=== PATIENT | male | born 1965 | race Caucasian/White ===

== ENCOUNTER 2021-04-01 20:37 | Inpatient (IN) | payer OTHER ==
[~2021-04-01] VITALS: Ht 190.5 cm; Wt 94.3 kg
[2021-04-01] MEDS ORDERED: ROCURONIUM BROMIDE 50 MG/5 ML VIAL As Ordered ONE (21:39)
[2021-04-01] MEDS ORDERED: LIDOCAINE 2% 100MG/5ML SDV (FOR ANES.) As Ordered ONE (21:39)
[2021-04-01] MEDS ORDERED: SUCCINYLCHOLINE INJ 200 MG/10 ML VIAL (J0330) As Ordered ONE (21:39)
[2021-04-01] MEDS ORDERED: propofoL 200 MG/20 ML VIAL As Ordered ONE (21:39)
[2021-04-01] MEDS ORDERED: MIDAZOLAM INJ 2MG/2ML VIAL (J2250 PER 1MG) As Ordered ONE (21:40)
[2021-04-01] MEDS ORDERED: fentaNYL 100 MCG/2 ML INJECTION (J3010) As Ordered ONE ×2 (21:40→22:19)
[2021-04-01] MEDS ORDERED: ONDANSETRON 4MG/2ML VIAL As Ordered ONE (21:40)
[2021-04-01] MEDS ORDERED: GENTAMICIN SULF 80MG/2ML VIAL As Ordered ONE (21:49)
--- NOTE | 2021-04-01 21:49 | ED PDOC ---
Post-Departure Follow-Up Emergency Department Attending Note Patient was transferred from outside facility to see Urology. Dr. Archibald has seen the patient in the ED and has written admission orders at this time. He was not seen or evaluated by an ED provider. BEBETO OSORIO MD April 01, 2021 21:49
--- NOTE | 2021-04-01 21:58 | SMCUROLCON ---
Urology Consultation General Date of Consultation 04/01/21 Reason For Consultation This patient is seen for Scrotal Abscess. History of Present Illness The patient is a 55-year-old male with a past medical history for urinary retention, diabetes scrotal inflammation and edema. He presented to the [facility] today because of drainage from the scrotum. He states that the scrotum has been swelling for about a week now and getting progressively worse with some discomfort. When it began draining, he presented to the hospital where he was diagnosed with a scrotal abscess and transferred to [facility]. He was seen in the urology clinic last week for urinary retention and had been scheduled for cystoscopy to evaluate the retention. At that time he was noted to have some edema of the scrotum and placed on ciprofloxacin, but the infection worsened resulting in an abscess. Past Medical History Medical History Coronary artery disease Hyperlipidemia Myocardial infarction Type 2 diabetes Surgical Hstory Laminectomy 1999 Femoropopliteal artery bypass 2004 Social History * Smoker: current smoker Alcohol: Denies Drugs: denies Allergies Allergies: Coded Allergies: No Known Allergies (Unverified , 04/01/21) Review of Systems General: Reports: Normal Appetite; Denies: Fatigue, Malaise Constitutional: Denies: Fever, Chills, Sweats, Weakness, Malaise Eyes: Denies: Pain, Vision change ENT: Denies: Head Aches, Sore Throat, Epistaxis Skin: Denies: Rash, Lesions, Breakdown, Nail Changes Pulmonary: Denies: Dyspnea, Cough Cardiovascular: Denies Chest Pain, Denies Palpitations Gastrointestinal: Denies: Nausea, Vomiting, Abdominal Pain Genitourinary: Reports: Retention, Other Symptoms (scrotal pain, swelling and drainage) Hematologic: Denies: Bruising, Bleeding Excessively Endocrine: Denies: Polydipsia, Polyphagia, Polyuria Musculoskeletal: Denies: Neck Pain, Back Pain Neurological: Denies: Weakness, Numbness, Incoordination, Change in Speech Physical Examination General Exam: Alert, No Acute Distress EYE EXAM: PERRLA, Conjunctiva & lids normal, EOMI; No: Sclera icteric ENT EXAM: Atraumatic, Mucous membr. moist/pink, Pharynx Normal Neck Exam: Supple; No: JVD, thyromegaly Chest Exam: Clear to auscultation, Normal air movement Heart Exam: Rate Normal, Regular Rhythm, Normal S1, Normal S2; No: Murmurs, Rubs Abdomen Exam: Normal Bowel Sounds, Soft; No: Tenderness, Hepatospenomegaly Male Exam Penis and scrotum was swollen with an indwelling Soto catheter. There is pus draining from the posterior portion of the scrotal sac. Vital Signs/I&O Vital Signs Date Time Temp Pulse Resp B/P (MAP) Pulse Ox O2 Delivery O2 Flow Rate FiO2 04/01/21 20:40 84 20 126/67 97 Room Air Assessment Scrotal abscess Plan Patient be taken to the operating room for incision, drainage and debridement of scrotal abscess. Cultures will be taken and the patient will be admitted for IV antibiotics and medical stabilization. Time Spent on Consult: Time Spent / Consult (Minutes): 75 NICOLE LINDA MD April 01, 2021 21:47
[2021-04-01] MEDS ORDERED: ceFAZolin 2 GM/D5W 50 ML IV BAG (J0690 PER 500MG) As Ordered ONE (22:09)
[2021-04-01] MEDS ORDERED: METOCLOPRAMIDE INJ 10MG/2ML VIAL (J2765 PER 1) As Ordered ONE (22:20)
[2021-04-01] MEDS ORDERED: PHENYLephrine 500MCG 5ML (100MCG/ML) SYRINGE As Ordered ONE (22:26)
[2021-04-01] MEDS ORDERED: ACETAMINOPHEN 1000MG 100ML IV BTL (OFIRMEV) (J0131 PER 10MG) As Ordered ONE (22:33)
[2021-04-01] MEDS ORDERED: GLYCOPYRROLATE INJ 0.2 MG/ML 2 ML VIAL As Ordered ONE (22:40)
[2021-04-01] MEDS ORDERED: NEOSTIGMINE 10MG/10ML VIAL (J2710 PER 0.5MG) As Ordered ONE (22:40)
[2021-04-01] MEDS ORDERED: KETOROLAC 30 MG/ML 1ML VIAL IV PRN (23:00)
[2021-04-01] MEDS ORDERED: oxyCODONE 5MG TAB PO PRN (23:00)
[2021-04-01] MEDS ORDERED: HYDROMORPHONE HCL 0.5 MG/ 0.5 ML SYRINGE (J1170 PER 1) IV PRN (23:00)
[2021-04-01] MEDS ORDERED: fentaNYL 100 MCG/2 ML INJECTION (J3010) IV PRN (23:00)
[2021-04-01] MEDS ORDERED: METOCLOPRAMIDE INJ 10MG/2ML VIAL (J2765 PER 1) IV PRN (23:00)
[2021-04-01] MEDS ORDERED: ONDANSETRON 4MG/2ML VIAL IV PRN (23:00)
[2021-04-01] MEDS ORDERED: LR 1,000 ML IV SCH (23:00)
--- NOTE | 2021-04-01 23:17 | ROOPDOC ---
[facility] Report Of Operation Report of Operation DATE OF PROCEDURE: 04/01/21 PREPROCEDURE DIAGNOSES: Scrotal abscess POSTPROCEDURE DIAGNOSES: Scrotal abscess PROCEDURE: Incision, drainage and debridement of scrotal abscess SURGEON: Jameel Archibald MD [facility] CONSULTANT: None ANESTHESIA: Gen. ESTIMATED BLOOD LOSS: Approximately 20 mL. COMPLICATIONS: None REMARKS: Abscess was limited to the right scrotal area PROCEDURE NOTE: Patient was brought to the operating room for incision and drainage of a scrotal abscess that started draining early this morning. DESCRIPTION OF PROCEDURE: The patient was placed on the table in the supine position, given general anesthesia, placed in the lithotomy position, prepped with Betadine paint, draped in an aseptic manner and timeout was performed. The scrotum was elevated and the draining cavity was identified. It was widened with a hemostat and aerobic and anaerobic cultures were taken. A #10 scalpel was then used to make a scrotal incision in the anterior portion but no abscess is identified. The scrotum was then opened over the drainage site and large amount of pus was drained. Necrotic debris was removed and portions of the scrotum were removed. The area was then probed with a finger until all the cavities were drained. There is an widely irrigated with the pressure diabetes specialist and a Kerlix was then used to pack the wound. The Kerlix was soaked in a gentamicin solution. Support dressing was applied with panty mesh. The patient was then awakened and sent to recovery area in stable condition having tolerated procedure well. The tissue was debridement subcutaneously down to the fascia and into the distal portion of the inguinal canal. JAMEEL ARCHIBALD MD April 01, 2021 23:17
[2021-04-01] MEDS ORDERED: LR 500 ML IV ONE (23:35)
[2021-04-02] VITALS (9 sets, daily range): BP systolic 92–122; BP diastolic 55–64
[2021-04-02] MEDS ORDERED: LR 500 ML IV ONE
[2021-04-02] MEDS ORDERED: MAALOX 30 ML SUSP *UDC PO PRN (01:20)
[2021-04-02] MEDS ORDERED: ACETAMINOPHEN TAB 650MG DOSE (2X325MG) PO PRN (01:20)
[2021-04-02] MEDS ORDERED: MOM 30ML SUSPENSION UDC PO PRN (01:20)
[2021-04-02] MEDS ORDERED: GLUCAGON INJ 1MG VIAL SC PRN (01:40)
[2021-04-02] MEDS ORDERED: GLUCOSE 4GM CHEW TABLET PO PRN (01:40)
[2021-04-02] MEDS ORDERED: DEXTROSE 50% 50 ML SYRINGE IV PRN (01:40)
--- NOTE | 2021-04-02 01:40 | HPEPDOC ---
[facility] Medical History & Physical Date of Admission April 02, 2021 Date of Service: April 02, 2021 History and Physical CHIEF COMPLAINT: scrotal pain HISTORY OF PRESENT ILLNESS: 55-year-old male with a history of urinary retention type 2 diabetes, hyperlipidemia, coronary artery disease status post [place] and sten ting in 2005, was transferred from [facility] for urologic evaluation of a known scrotal abscess. Patient was seen by Dr. Archibald one week ago, started on ciprofloxacin. Pain, swelling and discomfort began worse with draining from the posterior aspect of the scrotum. On arrival to the ER patient was taken to the OR by Dr. Archibald for incision and drainage. Patient denies any chest pain, shortness of breath, palpitations, nausea, vomiting, diarrhea. Postoperatively, patient noticed to have labile blood pressures ordered 1 L bolus by anesthesiology. Patient admitted to hospitalist service for IV antibiotics. PAST MEDICAL HISTORY: CAD s/p TX 2005, stent x 1 DM2 HLD Chronic back pain PAD PAST SURGICAL HISTORY: laminectomy Fem pop bypass 2004 SOCIAL HISTORY: Patient denies smoking Patient denies etoh use Patient denies illicit drug use FAMILY HISTORY: Reviewed with patient, did not contribute pertinent history ALLERGIES: Please see below. REVIEW OF SYSTEMS: 10 point review of systems completed. Other findings are noted in HPI HOME MEDICATIONS: Please see below. PHYSICAL EXAMINATION: VITAL SIGNS: please see below General: NAD, comfortable HEENT: PERRLA, EOMI, sclerae clear Neck: supple, normal ROM, no JVD Respiratory: lungs CTAB, no wheeze, no rales, no crackles CVS: RRR, normal S1, S2, no murmurs Abdo: soft, no masses, no hepatosplenomegaly, BS+, no rebound tenderness : dressing on scrotum post op clean, dry, intact; dressings not removed during exam. Soto catheter in place Extremities: No cyanosis, no edema MSK: no joint deformities, normal ROM Neuro: no focal neuro deficits, moving all 4 extremities, CN2-12 intact. Strength 5/5 in all 4 extremities. No nystagmus. Psych: calm, cooperative, AAO x 3 LABORATORY DATA: See below. MICROBIOLOGY: Please see below. ASSESSMENT: 55-year-old male with a history of urinary retention type 2 diabetes, hyperlipidemia, coronary artery disease status post [place] and stenting in 2005, was transferred from [facility] for urologic evaluation of a known scrotal abscess. Patient was seen by Dr. Archibald one week ago, started on ciprofloxacin. Pain, swelling and discomfort began worse with draining from the posterior aspect of the scrotum. On arrival to the ER patient was taken to the OR by Dr. Archibald for incision and drainage. Patient admitted to hospitalist service for IV antibiotics. PLAN: #Scrotal abscess - failed PO ciprofloxacin, was seen by Dr. Archibald in office - transfered from [place], for worsening pain, drainage - taken to OR by Dr. Archibald for I&D - IV zosyn - f/u intra op cultures DM2 - takes metformin at home, hold - ISS and FSBS AC and HS - hypoglycemic precautions Hypotension - noted post-op - receiving 1L bolus, BP improved - monitor CAD - s/p TX in 2005, stent - patient not on ASA - start ASA 81 mg daily PAD s/p fem pop bypass - follows with vascular surgery in [facility] DVT ppx: heparin. TEDs. Vital Signs Vital Signs Date Time Temp Pulse Resp B/P (MAP) Pulse Ox O2 Delivery O2 Flow Rate FiO2 04/02/21 00:45 65 18 100/66 (77) 99 Room Air 04/02/21 00:15 96.5 Laboratory Data Labs 24H Laboratory Tests 2 04/01/21 23:55: Bedside Glucose (Misc Panel) 63L 04/02/21 00:29: Bedside Glucose (Misc Panel) 64L Allergies Coded Allergies: No Known Allergies (Unverified , 04/01/21) JOHANNA BUSTOS MD April 02, 2021 01:40
[2021-04-02] MEDS ORDERED: LR 1,000 ML IV SCH (02:00)
[2021-04-02 02:08] LABS: BASO % 0.2 % (0.0-1.0); EOS # 0.2 10^3/uL (0.0-0.5); EOS % 1.3 % (0.0-3.0); HEMATOCRIT 31.6 % (42.0-52.0); HEMOGLOBIN 10.1 g/dl (13.5-17.5); LYMPH # 1.5 10^3/uL (1.5-5.0); LYMPH % 9.8 % (24.0-44.0); MEAN CORPUSCULAR HEMOGLOBIN 28.8 pg (27.0-33.0); MONO % 6.2 % (2.0-8.0); NEUTROPHILS # 12.6 10^3/uL (1.5-8.5); PLATELET COUNT, AUTOMATED 244 10^3/uL (150-450); RED BLOOD COUNT 3.51 10^6/uL (4.30-6.10); WHITE BLOOD COUNT 15.4 10^3/uL (4.0-10.0)
[2021-04-02 02:50] LABS: ALBUMIN 2.2 GM/DL (3.2-5.2); ALT/SGPT 8 U/L (12-78); BILIRUBIN,TOTAL 0.2 MG/DL (0.2-1.0); BLOOD UREA NITROGEN 14 MG/DL (7-18); CALCIUM LEVEL 9.6 MG/DL (8.5-10.1); CARBON DIOXIDE LEVEL 27 MEQ/L (21-32); CHLORIDE LEVEL 106 MEQ/L (98-107); CREATININE FOR GFR 0.95 MG/DL (0.70-1.30); GLOMERULAR FILTRATION RATE > 60.0 (>56); GLUCOSE, FASTING 113 MG/DL (70-100); MAGNESIUM LEVEL 1.7 MG/DL (1.8-2.4); POTASSIUM SERUM 4.6 MEQ/L (3.5-5.1); SODIUM LEVEL 138 MEQ/L (136-145); TOTAL PROTEIN 7.1 GM/DL (6.4-8.2)
[2021-04-02] MEDS ORDERED: FLOM0.4C39 PO (03:01)
[2021-04-02] MEDS ORDERED: FINA5TAB2 PO (03:01)
[2021-04-02] MEDS ORDERED: ASPI-161 PO (03:01)
[2021-04-02] MEDS ORDERED: CLOP75TA2 PO (03:01)
[2021-04-02] MEDS ORDERED: OXYB-54 PO (03:01)
[2021-04-02] MEDS ORDERED: GLIP5TAB20 PO (03:07)
[2021-04-02] MEDS ORDERED: METF-839 PO (03:07)
[2021-04-02] MEDS ORDERED: D31000TA2 PO (03:07)
[2021-04-02] MEDS ORDERED: GABA-1171 PO (03:07)
[2021-04-02] MEDS ORDERED: SENN-53 PO (03:07)
[2021-04-02] MEDS ORDERED: MIRA1POW3 PO (03:07)
[2021-04-02] MEDS ORDERED: LACTATED RINGER'S 1000 ML IV ONE (03:20)
[2021-04-02] MEDS: LR 1,000 ML IV SCH ×3 (03:47→23:24)
[2021-04-02] MEDS: PIPERACILLIN/TAZOBACTAM SOD 4.5 GM in D5W MINI-BAG PLUS 50 ML IV SCH ×4 (03:47→21:31)
[2021-04-02] MEDS: HEPARIN SOD (PORCINE) 5000UNITS/ML 1ML VIAL/SYRINGE SC SCH ×3 (05:22→21:31)
[2021-04-02] MEDS: HumaLOG INSULIN (NovoLOG) PER UNIT SC SCH ×4 (07:30→21:15)
[2021-04-02] MEDS: DOCUSATE SODIUM 100MG CAPSULE PO SCH ×2 (09:00→20:06)
[2021-04-02] MEDS ORDERED: MAG SULF 1GM/100ML (MAG RUN) 1 GM in IV 1 EA IV ONE (09:45)
[2021-04-02 10:02] LABS: HEMATOCRIT 33.2 % (42.0-52.0); HEMOGLOBIN 10.6 g/dl (13.5-17.5); MEAN CORPUSCULAR HEMOGLOBIN 28.5 pg (27.0-33.0); MEAN CORPUSCULAR HGB CONC 31.9 g/dl (32.0-36.5); MEAN CORPUSCULAR VOLUME 89.2 fl (80.0-96.0); PLATELET COUNT, AUTOMATED 250 10^3/uL (150-450); RED BLOOD COUNT 3.72 10^6/uL (4.30-6.10); WHITE BLOOD COUNT 10.8 10^3/uL (4.0-10.0)
[2021-04-02 10:27] LABS: BLOOD UREA NITROGEN 12 MG/DL (7-18); CALCIUM LEVEL 9.4 MG/DL (8.5-10.1); CARBON DIOXIDE LEVEL 29 MEQ/L (21-32); CHLORIDE LEVEL 106 MEQ/L (98-107); CREATININE FOR GFR 0.81 MG/DL (0.70-1.30); GLOMERULAR FILTRATION RATE > 60.0 (>56); GLUCOSE, FASTING 82 MG/DL (70-100); MAGNESIUM LEVEL 1.9 MG/DL (1.8-2.4); POTASSIUM SERUM 4.1 MEQ/L (3.5-5.1); SODIUM LEVEL 139 MEQ/L (136-145)
--- NOTE | 2021-04-02 10:41 | IPNPDOC ---
Text Note Date of Service The patient was seen on 04/02/21. NOTE SUBJECTIVE: -Had noted 2sec pause that was asymptomatic, pending EKG -No acute complaints otherwise PHYSICAL EXAMINATION: VITAL SIGNS: please see below General: NAD, comfortable HEENT: PERRLA, EOMI, sclerae clear Neck: supple, normal ROM, no JVD Respiratory: lungs CTAB, no wheeze, no rales, no crackles CVS: RRR, normal S1, S2, no murmurs Abdo: soft, no masses, no hepatosplenomegaly, BS+, no rebound tenderness : dressing on scrotum post op clean, dry, intact. Soto catheter in place Extremities: No cyanosis, no edema MSK: no joint deformities, normal ROM Neuro: no focal neuro deficits, moving all 4 extremities, CN2-12 intact. Strength 5/5 in all 4 extremities. No nystagmus. Psych: calm, cooperative, AAO x 3 LABORATORY DATA: Reviewed WBC 15.4 hgb 10.1 platelets 244 Na 138 K 4.6 Cr 0.95 MICROBIOLOGY: Please see below. ASSESSMENT: 55-year-old M with a history of urinary retention type 2 diabetes, hyperlipidemia, coronary artery disease status post [place] and stenting in 2005, was transferred from [facility] for urologic evaluation of a known sc rotal abscess after failed outpatient PO ciprofloxacin, now with drainage from the posterior aspect of the scrotum POD#1 s/p I&D on zosyn. PLAN: #Scrotal abscess - failed PO ciprofloxacin, was seen by Dr. Archibald in office - transfered from [place], for worsening pain, drainage - taken to OR by Dr. Archibald for I&D, POD #1 - Day 1 of IV zosyn - f/u intra op cultures DM2 - Hold home metformin - ISS and FSBS AC and HS - hypoglycemic precautions Hypotension - noted post-op - receiving 1L bolus, BP improved - monitor Asymptomatic pause noted on telemetry: -f/u EKG -telemetry CAD - s/p PR in 2005, stent - ASA 81 mg daily PAD s/p fem pop bypass - follows with vascular surgery in [facility] DVT ppx: heparin. TEDs. VS,Fishbone, I+O VS, Fishbone, I+O Laboratory Tests 04/02/21 01:58 Vital Signs Date Time Temp Pulse Resp B/P (MAP) Pulse Ox O2 Delivery O2 Flow Rate FiO2 04/02/21 07:41 96.1 58 16 106/62 (77) 99 Room Air I&O- Last 24 Hours up to 6 AM 04/02/21 06:00 Intake Total 700 ml Output Total 1425 ml Balance -725 ml BRANDON CASTRO MD April 02, 2021 09:17
--- NOTE | 2021-04-02 15:09 | ECGEPIP ---
[facility] Test Date: 2021-04-02 Pat Name: SOLOMON LEDESMA Department: Room: [place] [id number] Gender: Male [employer] Instructor: simon : 1965 Requested By: JOHANNA BUSTOS Order Number: [id number] Reading MD: Cj Loco Measurements Intervals [place] Rate: 64 P: IA: QRS: -44 QRSD: 94 T: 15 QT: 408 QTc: 420 Interpretive Statements Normal sinus rhythm with first degree AV block Left axis deviation Low QRS complex voltage in the limb leads Inferior infarct , age undetermined Comparison tracing not on file Electronically Signed on 04-02-2021 15:08:48 EDT by Cj Loco
--- NOTE | 2021-04-02 20:16 | IPNPDOC ---
Subjective Review oF Systems Chief Complaint The patient is a 55-year-old male admitted with a reason for visit of Scrotal Abscess. General: Reports: Normal Appetite; Denies: Fatigue, Malaise Constitutional: Denies: Fever, Chills, Sweats, Weakness, Malaise Eyes: Denies: Pain, Vision change ENT: Denies: Head Aches, Sore Throat, Epistaxis Skin: Denies: Rash, Lesions, Breakdown, Nail Changes Pulmonary: Denies: Dyspnea, Cough Gastrointestinal: Denies: Nausea, Vomiting, Abdominal Pain Genitourinary: Denies: Dysuria, Frequency, Incontinence, Hematuria Hematologic: Denies: Bruising, Bleeding Excessively Musculoskeletal: Denies: Neck Pain, Back Pain Objective Physical Examination General Exam: Alert, Cooperative, No Acute Distress, Mild Distress Eye Exam: PERRLA, Conjunctiva & lids normal, EOMI; No: Sclera icteric ENT EXAM: Atraumatic, Mucous membr. moist/pink, Pharynx Normal ABDOMEN EXAM: Normal bowel sounds, Soft; No: Tenderness, Hepatospenomegaly Extremity Exam: Tenderness; No: Clubbing, Cyanosis, Edema Skin Exam: Nl turgor and temperature; No: Rash, Breakdown Vital Signs/I&O Vital Signs Date Time Temp Pulse Resp B/P (MAP) Pulse Ox O2 Delivery O2 Flow Rate FiO2 04/02/21 13:32 122/61 (81) 04/02/21 13:28 97.0 66 16 99 Room Air I&O- Last 24 Hours up to 6 AM 04/02/21 06:00 Intake Total 700 ml Output Total 1425 ml Balance -725 ml Laboratory Data Labs 24H Laboratory Tests 2 04/01/21 23:55: Bedside Glucose (Misc Panel) 63L 04/02/21 00:29: Bedside Glucose (Misc Panel) 64L 04/02/21 01:58: Immature Granulocyte % (Auto) 0.5, Neutrophils (%) (Auto) 82.0H, Lymphocytes (%) (Auto) 9.8L, Monocytes (%) (Auto) 6.2, Eosinophils (%) (Auto) 1.3, Basophils (%) (Auto) 0.2, Neutrophils # (Auto) 12.6H, Lymphocytes # (Auto) 1.5, Monocytes # (Auto) 1.0H, Eosinophils # (Auto) 0.2, Basophils # (Auto) 0.0, Nucleated Red Blood Cells % (auto) 0.0, Anion Gap 5L, Glomerular Filtration Rate > 60.0, Calcium Level 9.6, Magnesium Level 1.7L, Total Bilirubin 0.2, Aspartate Amino T ransf (AST/SGOT) 10, Alanine Aminotransferase (ALT/SGPT) 8L, Alkaline Phosphatase 57, Total Protein 7.1, Albumin 2.2L, Albumin/Globulin Ratio 0.4 04/02/21 07:43: Bedside Glucose (Misc Panel) 72 04/02/21 09:34: Nucleated Red Blood Cells % (auto) 0.0, Anion Gap 4L, Glomerular Filtration Rate > 60.0, Calcium Level 9.4, Magnesium Level 1.9 04/02/21 10:36: Methicillin-Resist S.aureus DNA PCR NOT DETECTED 04/02/21 11:37: Bedside Glucose (Misc Panel) 98 04/02/21 16:52: Bedside Glucose (Misc Panel) 97 CBC/BMP Laboratory Tests 04/02/21 01:58 04/02/21 09:34 FSBS Laboratory Tests Test 04/01/21 23:55 04/02/21 00:29 04/02/21 07:43 04/02/21 11:37 Range/Units Bedside Glucose (Misc Panel) 63 64 72 98 70-105 MG/DL Test 04/02/21 16:52 Range/Units Bedside Glucose (Misc Panel) 97 70-105 MG/DL Microbiology Microbiology 04/01/21 Gram Stain - Final, Resulted 04/01/21 Abscess Culture, Resulted Pending 04/01/21 Anaerobic Culture, Resulted Pending Assessment/Plan Date Seen The patient was seen on 04/02/21. Patient Summary Patient's white cell count has dropped and the hematocrit is stable even have gone up slightly. Patient is comfortable and the dressing is relatively clean. Wound cultures show gram-negative rods and cocci in pairs. Plan/VTE VTE Prophylaxis Ordered?: No Plan Dressing was changed and repacked today. Will continue to do this on a daily basis. Awaiting sensitivity results. NICOLE LINDA MD April 02, 2021 20:16
[2021-04-03] MEDS: PIPERACILLIN/TAZOBACTAM SOD 4.5 GM in D5W MINI-BAG PLUS 50 ML IV SCH ×4 (02:33→21:07)
[2021-04-03] MEDS: NORCO, ANEXSIA 5/325MG TABLET (HYDROcodone/ACETAMINOPHEN) PO PRN (02:39)
[2021-04-03] MEDS: HEPARIN SOD (PORCINE) 5000UNITS/ML 1ML VIAL/SYRINGE SC SCH ×3 (05:11→21:08)
[2021-04-03 06:00] VITALS: BP 105/60
[2021-04-03 06:39] LABS: HEMATOCRIT 30.7 % (42.0-52.0); HEMOGLOBIN 9.7 g/dl (13.5-17.5); MEAN CORPUSCULAR HEMOGLOBIN 28.1 pg (27.0-33.0); MEAN CORPUSCULAR HGB CONC 31.6 g/dl (32.0-36.5); PLATELET COUNT, AUTOMATED 264 10^3/uL (150-450); RED BLOOD COUNT 3.45 10^6/uL (4.30-6.10); WHITE BLOOD COUNT 7.5 10^3/uL (4.0-10.0)
[2021-04-03 07:28] LABS: BLOOD UREA NITROGEN 12 MG/DL (7-18); CALCIUM LEVEL 8.7 MG/DL (8.5-10.1); CARBON DIOXIDE LEVEL 27 MEQ/L (21-32); CHLORIDE LEVEL 109 MEQ/L (98-107); CREATININE FOR GFR 0.94 MG/DL (0.70-1.30); GLOMERULAR FILTRATION RATE > 60.0 (>56); GLUCOSE, FASTING 107 MG/DL (70-100); SODIUM LEVEL 142 MEQ/L (136-145)
[2021-04-03] MEDS: HumaLOG INSULIN (NovoLOG) PER UNIT SC SCH ×4 (07:30→20:21)
[2021-04-03] MEDS: DOCUSATE SODIUM 100MG CAPSULE PO SCH ×2 (08:08→21:06)
[2021-04-03] MEDS: LR 1,000 ML IV SCH ×2 (09:37→21:07)
--- NOTE | 2021-04-03 10:52 | IPNPDOC ---
Subjective Review oF Systems Chief Complaint The patient is a 55-year-old male admitted with a reason for visit of Scrotal Abscess. General: Reports: Normal Appetite; Denies: Fatigue, Malaise Constitutional: Denies: Fever, Chills, Sweats, Weakness, Malaise Eyes: Denies: Pain, Vision change ENT: Denies: Head Aches, Sore Throat, Epistaxis Skin: Denies: Rash, Lesions, Breakdown, Nail Changes Pulmonary: Denies: Dyspnea, Cough Cardiovascular: Denies Chest Pain, Denies Palpitations Gastrointestinal: Denies: Nausea, Vomiting, Abdominal Pain Genitourinary: Denies: Dysuria, Frequency, Incontinence, Hematuria Hematologic: Denies: Bruising, Bleeding Excessively Endocrine: Denies: Polydipsia, Polyphagia, Polyuria Musculoskeletal: Denies: Neck Pain, Back Pain Objective Physical Examination General Exam: Alert, Cooperative, No Acute Distress, Mild Distress Eye Exam: PERRLA, Conjunctiva & lids normal, EOMI; No: Sclera icteric ENT EXAM: Atraumatic, Mucous membr. moist/pink, Pharynx Normal ABDOMEN EXAM: Normal bowel sounds, Soft; No: Tenderness, Hepatospenomegaly Extremity Exam: Tenderness; No: Clubbing, Cyanosis, Edema Skin Exam: Nl turgor and temperature; No: Rash, Breakdown Vital Signs/I&O Vital Signs Date Time Temp Pulse Resp B/P (MAP) Pulse Ox O2 Delivery O2 Flow Rate FiO2 04/03/21 06:00 97.0 63 17 105/60 (75) 96 Room Air I&O- Last 24 Hours up to 6 AM 04/03/21 06:00 Intake Total 3730 ml Output Total 1975 ml Balance 1755 ml Laboratory Data Labs 24H Laboratory Tests 2 04/02/21 11:37: Bedside Glucose (Misc Panel) 98 04/02/21 16:52: Bedside Glucose (Misc Panel) 97 04/02/21 21:11: Bedside Glucose (Misc Panel) 101 04/03/21 05:57: Nucleated Red Blood Cells % (auto) 0.0, Anion Gap 6L, Glomerular Filtration Rate > 60.0, Calcium Level 8.7 CBC/BMP Laboratory Tests 04/03/21 05:57 FSBS Laboratory Tests Test 04/02/21 11:37 04/02/21 16:52 04/02/21 21:11 Range/Units Bedside Glucose (Misc Panel) 98 97 101 70-105 MG/DL Microbiology Microbiology 04/01/21 Gram Stain - Final, Resulted 04/01/21 Abscess Culture, Resulted Pending 04/01/21 Anaerobic Culture, Resulted Pending Assessment/Plan Date Seen The patient was seen on 04/03/21. Patient Summary Scrotal abscess cavity is closing well and dressings are clean Cultures and sensitivities still pending Plan/VTE VTE Prophylaxis Ordered?: No Plan Continue dressing changes and antibiotics until dultures are back and patient can be transitioned to oral meds. NICOLE LINDA MD April 03, 2021 10:52
--- NOTE | 2021-04-03 11:22 | IPNPDOC ---
Text Note Date of Service The patient was seen on 04/03/21. NOTE SUBJECTIVE: -No acute events overnight -Telemetry without further episodes of transient mobitz 2 type of activity. Official EKG yesterday morning had showed NSR with 1st degree HB -No acute complaints otherwise, was seen by urology and wound repacked. PHYSICAL EXAMINATION: VITAL SIGNS: please see below General: NAD, comfortable HEENT: PERRLA, EOMI, sclerae clear Neck: supple, normal ROM, no JVD Respiratory: lungs CTAB, no wheeze, no rales, no crackles CVS: RRR, normal S1, S2, no murmurs Abdo: soft, no masses, no hepatosplenomegaly, BS+, no rebound tenderness : dressing on scrotum post op clean, dry, intact. Soto catheter in place Extremities: No cyanosis, no edema MSK: no joint deformities, normal ROM Neuro: no focal neuro deficits, moving all 4 extremities, CN2-12 intact. Strength 5/5 in all 4 extremities. No nystagmus. Psych: calm, cooperative, AAO x 3 LABORATORY DATA: Reviewed WBC 7.5 hgb 9.7 platelets 264 Na 142 K 4 Cr 0.94 MICROBIOLOGY: Please see below. ASSESSMENT: 55-year-old M with a history of urinary retention type 2 diabetes, hyperlipidem ia, coronary artery disease status post [place] and stenting in 2005, was transferred from [facility] for urologic evaluation of a known scrotal abscess after failed outpatient PO ciprofloxacin, now with drainage from the posterior aspect of the scrotum POD#2 s/p I&D on zosyn. PLAN: #Scrotal abscess - failed PO ciprofloxacin, was seen by Dr. Archibald in office - Was transferred from [place], for worsening pain, drainage - taken to OR by Dr. Archibald for I&D, POD #2 - Day 2 of IV zosyn - f/u intra op cultures DM2 - Hold home metformin - ISS and FSBS AC and HS - hypoglycemic precautions Hypotension - noted post-op - receiving 1L bolus, BP improved - monitor Asymptomatic transient mobitz2 noted on telemetry on 04/02 AM: -f/u EKG showed 1st degree HB -telemetry -remains asymptomatic CAD - s/p [place] in 2005, stent - ASA 81 mg daily PAD s/p fem pop bypass - follows with vascular surgery in [place] DVT ppx: heparin. TEDs. VS,Fishbone, I+O VS, Fishbone, I+O Laboratory Tests 04/02/21 09:34 04/03/21 05:57 Vital Signs Date Time Temp Pulse Resp B/P (MAP) Pulse Ox O2 Delivery O2 Flow Rate FiO2 04/03/21 06:00 97.0 63 17 105/60 (75) 96 Room Air I&O- Last 24 Hours up to 6 AM 04/03/21 05:59 Intake Total 2980 ml Output Total 2450 ml Balance 530 ml BRANDON CASTRO MD April 03, 2021 08:51
[2021-04-03 14:00] VITALS: BP 117/65
[2021-04-03 22:00] VITALS: BP 129/74
[2021-04-04] MEDS: NORCO, ANEXSIA 5/325MG TABLET (HYDROcodone/ACETAMINOPHEN) PO PRN (00:10)
[2021-04-04] MEDS: PIPERACILLIN/TAZOBACTAM SOD 4.5 GM in D5W MINI-BAG PLUS 50 ML IV SCH ×4 (02:27→21:32)
[2021-04-04] MEDS: HEPARIN SOD (PORCINE) 5000UNITS/ML 1ML VIAL/SYRINGE SC SCH ×3 (05:06→21:33)
[2021-04-04 06:00] VITALS: BP 125/73
[2021-04-04 06:16] LABS: HEMATOCRIT 32.2 % (42.0-52.0); HEMOGLOBIN 10.1 g/dl (13.5-17.5); MEAN CORPUSCULAR HGB CONC 31.4 g/dl (32.0-36.5); MEAN CORPUSCULAR VOLUME 89.2 fl (80.0-96.0); PLATELET COUNT, AUTOMATED 256 10^3/uL (150-450); RED BLOOD COUNT 3.61 10^6/uL (4.30-6.10); WHITE BLOOD COUNT 6.8 10^3/uL (4.0-10.0)
[2021-04-04 06:39] LABS: BLOOD UREA NITROGEN 10 MG/DL (7-18); CARBON DIOXIDE LEVEL 28 MEQ/L (21-32); CHLORIDE LEVEL 107 MEQ/L (98-107); CREATININE FOR GFR 0.88 MG/DL (0.70-1.30); GLOMERULAR FILTRATION RATE > 60.0 (>56); GLUCOSE, FASTING 114 MG/DL (70-100); POTASSIUM SERUM 4.3 MEQ/L (3.5-5.1); SODIUM LEVEL 140 MEQ/L (136-145)
[2021-04-04] MEDS: LR 1,000 ML IV SCH ×2 (07:18→16:43)
[2021-04-04] MEDS: HumaLOG INSULIN (NovoLOG) PER UNIT SC SCH ×4 (07:30→21:26)
[2021-04-04] MEDS: DOCUSATE SODIUM 100MG CAPSULE PO SCH ×2 (08:29→21:31)
[2021-04-04 10:40] LABS: MAGNESIUM LEVEL 1.8 MG/DL (1.8-2.4)
--- NOTE | 2021-04-04 10:58 | IPNPDOC ---
Text Note Date of Service The patient was seen on 04/04/21. NOTE SUBJECTIVE: -No acute events overnight -No atypical activity on telemetry. -No acute complaints otherwise. PHYSICAL EXAMINATION: VITAL SIGNS: please see below General: NAD, comfortable HEENT: PERRLA, EOMI, sclerae clear Neck: supple, normal ROM, no JVD Respiratory: lungs CTAB, no wheeze, no rales, no crackles CVS: RRR, normal S1, S2, no murmurs Abdo: soft, no masses, no hepatosplenomegaly, BS+, no rebound tenderness : dressing on scrotum post op clean, dry, intact. Soto catheter in place Extremities: No cyanosis, no edema MSK: no joint deformities, normal ROM Neuro: no focal neuro deficits, moving all 4 extremities, CN2-12 intact. Strength 5/5 in all 4 extremities. No nystagmus. Psych: calm, cooperative, AAO x 3 LABORATORY DATA: Reviewed WBC 6.8 hgb 10.1 platelets 256 Cr 0.88 MICROBIOLOGY: Please see below. ASSESSMENT: 55-year-old M with a history of urinary retention type 2 diabetes, hyperlipidemia, coronary artery disease status post [place] and stenting in 2005, was transferred from [facility] for urologic evaluation of a known scrotal abscess after failed outpatient PO ciprofloxacin, now with drainage from the posterior aspect of the scrotum POD#3 s/p I&D on zosyn. PLAN: #Scrotal abscess - failed PO ciprofloxacin, was seen by Dr. Archibald in office - Was transferred from [place], for worsening pain, drainage - taken to OR by Dr. Archibald for I&D, POD #3 - Day 3 of IV zosyn - f/u intra op cultures DM2 - Hold home metformin - ISS and FSBS AC and HS - hypoglycemic precautions Hypotension - noted post-op - receiving 1L bolus, BP improved - monitor Asymptomatic transient mobitz2 noted on telemetry on 04/02 AM: -f/u EKG showed 1st degree HB -telemetry stable -remains asymptomatic CAD - s/p [place] in 2005, stent - ASA 81 mg daily PAD s/p fem pop bypass - follows with vascular surgery in [facility] DVT ppx: heparin. TEDs. VS,Fishbone, I+O VS, Fishbone, I+O Laboratory Tests 04/04/21 05:42 Vital Signs Date Time Temp Pulse Resp B/P (MAP) Pulse Ox O2 Delivery O2 Flow Rate FiO2 04/04/21 06:00 97.7 56 20 125/73 (90) 95 04/04/21 00:40 Room Air I&O- Last 24 Hours up to 6 AM 04/04/21 06:00 Intake Total 4320 ml Output Total 2350 ml Balance 1970 ml BRANDON CASTRO MD April 04, 2021 09:27
--- NOTE | 2021-04-04 11:24 | IPNPDOC ---
Subjective Review oF Systems Chief Complaint The patient is a 55-year-old male admitted with a reason for visit of Scrotal Abscess. General: Reports: Normal Appetite; Denies: Fatigue, Malaise Constitutional: Denies: Fever, Chills, Sweats, Weakness, Malaise Eyes: Denies: Pain, Vision change ENT: Denies: Head Aches, Sore Throat, Epistaxis Genitourinary: Denies: Dysuria, Frequency, Incontinence, Hematuria Hematologic: Denies: Bruising, Bleeding Excessively Musculoskeletal: Denies: Neck Pain, Back Pain Objective Physical Examination General Exam: Alert, Cooperative, No Acute Distress, Mild Distress Eye Exam: PERRLA, Conjunctiva & lids normal, EOMI; No: Sclera icteric ENT EXAM: Atraumatic, Mucous membr. moist/pink, Pharynx Normal ABDOMEN EXAM: Normal bowel sounds, Soft; No: Tenderness, Hepatospenomegaly Extremity Exam: Tenderness; No: Clubbing, Cyanosis, Edema Skin Exam: Nl turgor and temperature; No: Rash, Breakdown Other physical findings Abscess cavity slowly improving. Scrotal skin less inflamed and less edematous. Vital Signs/I&O Vital Signs Date Time Temp Pulse Resp B/P (MAP) Pulse Ox O2 Delivery O2 Flow Rate FiO2 04/04/21 06:00 97.7 56 20 125/73 (90) 95 04/04/21 00:40 Room Air I&O- Last 24 Hours up to 6 AM 04/04/21 06:00 Intake Total 4320 ml Output Total 2350 ml Balance 1970 ml Laboratory Data Labs 24H Laboratory Tests 2 04/03/21 11:29: Bedside Glucose (Misc Panel) 134H 04/03/21 16:30: Bedside Glucose (Misc Panel) 110H 04/03/21 20:14: Bedside Glucose (Misc Panel) 128H 04/04/21 05:42: Nucleated Red Blood Cells % (auto) 0.0, Anion Gap 5L, Glomerular Filtration Rate > 60.0, Calcium Level 9.0, Magnesium Level 1.8 CBC/BMP Laboratory Tests 04/04/21 05:42 FSBS Laboratory Tests Test 04/03/21 11:29 04/03/21 16:30 04/03/21 20:14 Range/Units Bedside Glucose (Misc Panel) 134 110 128 70-105 MG/DL Microbiology Microbiology 04/01/21 Gram Stain - Final, Resulted 04/01/21 Abscess Culture - Final, Resulted 04/01/21 Anaerobic Culture, Resulted Pending Assessment/Plan Date Seen The patient was seen on 04/04/21. Patient Summary Still waiting for culture report from surgical specimen. Wound improving with daily dressing packing. Plan/VTE VTE Prophylaxis Ordered?: No Plan Continue dressing cnanges dally Continue NICOLE Ferguson MD April 04, 2021 11:24
[2021-04-04] MEDS ORDERED: MAGNESIUM OXIDE 400MG TAB (MAG-OX) PO ONE (20:00)
[2021-04-04 22:00] VITALS: BP 130/75
[2021-04-05] MEDS: LR 1,000 ML IV SCH ×2 (01:16→15:46)
[2021-04-05] MEDS: PIPERACILLIN/TAZOBACTAM SOD 4.5 GM in D5W MINI-BAG PLUS 50 ML IV SCH ×4 (02:48→21:00)
[2021-04-05] MEDS: NORCO, ANEXSIA 5/325MG TABLET (HYDROcodone/ACETAMINOPHEN) PO PRN (04:06)
[2021-04-05] MEDS: HEPARIN SOD (PORCINE) 5000UNITS/ML 1ML VIAL/SYRINGE SC SCH ×3 (05:26→21:00)
[2021-04-05 05:47] LABS: HEMATOCRIT 34.7 % (42.0-52.0); MEAN CORPUSCULAR HEMOGLOBIN 27.9 pg (27.0-33.0); MEAN CORPUSCULAR HGB CONC 31.7 g/dl (32.0-36.5); MEAN CORPUSCULAR VOLUME 88.1 fl (80.0-96.0); PLATELET COUNT, AUTOMATED 276 10^3/uL (150-450); RED BLOOD COUNT 3.94 10^6/uL (4.30-6.10); WHITE BLOOD COUNT 6.6 10^3/uL (4.0-10.0)
[2021-04-05 06:00] VITALS: BP 121/66
[2021-04-05 06:14] LABS: BLOOD UREA NITROGEN 10 MG/DL (7-18); CALCIUM LEVEL 8.9 MG/DL (8.5-10.1); CARBON DIOXIDE LEVEL 26 MEQ/L (21-32); CHLORIDE LEVEL 107 MEQ/L (98-107); CREATININE FOR GFR 0.88 MG/DL (0.70-1.30); GLOMERULAR FILTRATION RATE > 60.0 (>56); GLUCOSE, FASTING 117 MG/DL (70-100); POTASSIUM SERUM 4.1 MEQ/L (3.5-5.1); SODIUM LEVEL 139 MEQ/L (136-145)
[2021-04-05] MEDS: HumaLOG INSULIN (NovoLOG) PER UNIT SC SCH ×5 (08:26→20:40)
[2021-04-05] MEDS: DOCUSATE SODIUM 100MG CAPSULE PO SCH ×3 (08:26→21:00)
--- NOTE | 2021-04-05 09:32 | IPNPDOC ---
Text Note Date of Service The patient was seen on 04/05/21. NOTE SUBJECTIVE: -No acute events overnight -1 report of asymptomatic transient type 2 mobitz dropped Ps -No acute complaints otherwise. PHYSICAL EXAMINATION: VITAL SIGNS: please see below General: NAD, comfortable HEENT: PERRLA, EOMI, sclerae clear Neck: supple, normal ROM, no JVD Respiratory: lungs CTAB, no wheeze, no rales, no crackles CVS: RRR, normal S1, S2, no murmurs Abdo: soft, no masses, no hepatosplenomegaly, BS+, no rebound tenderness : dressing on scrotum post op clean, dry, intact. Soto catheter in place Extremities: No cyanosis, no edema MSK: no joint deformities, normal ROM Neuro: no focal neuro deficits, moving all 4 extremities, CN2-12 intact. Strengt h 5/5 in all 4 extremities. No nystagmus. Psych: calm, cooperative, AAO x 3 LABORATORY DATA: Reviewed WBC 6.6 hgb 11 platelets 276 Cr 0.88 MICROBIOLOGY: Please see below. ASSESSMENT: 55-year-old M with a history of urinary retention type 2 diabetes, hyperlipidemia, coronary artery disease status post [place] and stenting in 2005, was transferred from [facility] for urologic evaluation of a known scrotal abscess after failed outpatient PO ciprofloxacin, now with drainage from the posterior aspect of the scrotum POD#4 s/p I&D on zosyn. PLAN: #Scrotal abscess - failed PO ciprofloxacin, was seen by Dr. Archibald in office - Was transferred from [place], for worsening pain, drainage - taken to OR by Dr. Archibald for I&D, POD #4 - Day 4 of IV zosyn - f/u intra op cultures DM2 - Holding home metformin - ISS and FSBS AC and HS - hypoglycemic precautions Hypotension - noted post-op - receiving 1L bolus, BP improved - monitor Asymptomatic transient mobitz2 noted on telemetry on 04/02 AM: -f/u EKG showed 1st degree HB -telemetry stable -remains asymptomatic CAD - s/p [place] in 2005, stent - ASA 81 mg daily PAD s/p fem pop bypass - follows with vascular surgery in [facility] DVT ppx: heparin. TEDs. VS,Fishbone, I+O VS, Fishbone, I+O Laboratory Tests 04/05/21 05:33 Vital Signs Date Time Temp Pulse Resp B/P (MAP) Pulse Ox O2 Delivery O2 Flow Rate FiO2 04/05/21 06:00 97.8 63 20 121/66 (84) 94 04/05/21 04:36 Room Air I&O- Last 24 Hours up to 6 AM 04/05/21 05:59 Intake Total 4920 ml Output Total 4300 ml Balance 620 ml BRANDON CASTRO MD April 05, 2021 08:14
[2021-04-05 14:00] VITALS: BP 122/67
--- NOTE | 2021-04-05 15:16 | IPNPDOC ---
Subjective Review oF Systems Chief Complaint The patient is a 55-year-old male admitted with a reason for visit of Scrotal Abscess. Events since Last Encounter No acute events o/n. Good pain control w/ dressing changes. Ambulating. No f/c/ns. Objective Physical Examination General Exam: Alert, Cooperative, No Acute Distress ABDOMEN EXAM: Soft; No: Tenderness Neuro Exam: Normal Speech Psych Exam: Mental status NL, Mood NL Other physical findings catheter in place draining clear urine; R hemiscrotum w/ packing in place - nontender, no erythema, mild edema Vital Signs/I&O Vital Signs Date Time Temp Pulse Resp B/P (MAP) Pulse Ox O2 Delivery O2 Flow Rate FiO2 04/05/21 06:00 97.8 63 20 121/66 (84) 94 04/05/21 04:36 Room Air I&O- Last 24 Hours up to 6 AM 04/05/21 06:00 Intake Total 4920 ml Output Total 4400 ml Balance 520 ml Laboratory Data Labs 24H Laboratory Tests 2 04/04/21 16:21: Bedside Glucose (Misc Panel) 106H 04/04/21 20:52: Bedside Glucose (Misc Panel) 117H 04/05/21 05:33: Nucleated Red Blood Cells % (auto) 0.0, Anion Gap 6L, Glomerular Filtration Rate > 60.0, Calcium Level 8.9 04/05/21 12:06: Bedside Glucose (Misc Panel) 133H CBC/BMP Laboratory Tests 04/05/21 05:33 FSBS Laboratory Tests Test 04/04/21 16:21 04/04/21 20:52 04/05/21 12:06 Range/Units Bedside Glucose (Misc Panel) 106 117 133 70-105 MG/DL Microbiology Microbiology 04/01/21 Gram Stain - Final, Resulted 04/01/21 Abscess Culture - Final, Resulted 04/01/21 Anaerobic Culture, Resulted Pending Assessment/Plan Date Seen The patient was seen on 04/05/21. Patient Summary This is a 55 y/o M POD4 s/p scrotal I&D and debridement for a scrotal abscess. He is doing well. Cultures are still pending. Plan/VTE VTE Prophylaxis Ordered?: Yes VTE Exclusion Mechanical Proph: N/A:VTE Prophy Ordered Plan - continue broad spectrum abx and adjust based on final culture results - continue daily dressing changes, packing the wounds w/ minimally moist kerlex and cover w/ gauze - patient will need C to help w/ dressing changes DAFNE ABDULLAHI MD April 05, 2021 15:16
[2021-04-05 22:00] VITALS: BP 141/81
[2021-04-06] MEDS: PIPERACILLIN/TAZOBACTAM SOD 4.5 GM in D5W MINI-BAG PLUS 50 ML IV SCH ×4 (02:23→20:31)
[2021-04-06] MEDS: NORCO, ANEXSIA 5/325MG TABLET (HYDROcodone/ACETAMINOPHEN) PO PRN (02:23)
[2021-04-06] MEDS: LR 1,000 ML IV SCH ×3 (02:24→17:36)
[2021-04-06 05:53] LABS: HEMATOCRIT 33.8 % (42.0-52.0); HEMOGLOBIN 10.6 g/dl (13.5-17.5); MEAN CORPUSCULAR HEMOGLOBIN 27.7 pg (27.0-33.0); MEAN CORPUSCULAR HGB CONC 31.4 g/dl (32.0-36.5); MEAN CORPUSCULAR VOLUME 88.3 fl (80.0-96.0); PLATELET COUNT, AUTOMATED 287 10^3/uL (150-450); RED BLOOD COUNT 3.83 10^6/uL (4.30-6.10); WHITE BLOOD COUNT 6.8 10^3/uL (4.0-10.0)
[2021-04-06 06:00] VITALS: BP 125/68
[2021-04-06] MEDS: HEPARIN SOD (PORCINE) 5000UNITS/ML 1ML VIAL/SYRINGE SC SCH ×3 (06:00→20:32)
[2021-04-06 06:20] LABS: BLOOD UREA NITROGEN 10 MG/DL (7-18); CALCIUM LEVEL 8.8 MG/DL (8.5-10.1); CARBON DIOXIDE LEVEL 26 MEQ/L (21-32); CHLORIDE LEVEL 106 MEQ/L (98-107); CREATININE FOR GFR 0.92 MG/DL (0.70-1.30); GLOMERULAR FILTRATION RATE > 60.0 (>56); GLUCOSE, FASTING 150 MG/DL (70-100); POTASSIUM SERUM 4.1 MEQ/L (3.5-5.1); SODIUM LEVEL 139 MEQ/L (136-145)
[2021-04-06] MEDS: DOCUSATE SODIUM 100MG CAPSULE PO SCH ×2 (09:00→20:22)
[2021-04-06] MEDS: HumaLOG INSULIN (NovoLOG) PER UNIT SC SCH ×4 (09:27→20:31)
[2021-04-06] MEDS: TAMSULOSIN 0.4 MG CAP PO SCH (09:27)
--- NOTE | 2021-04-06 12:32 | IPNPDOC ---
Subjective Review oF Systems Chief Complaint The patient is a 56-year-old male admitted with a reason for visit of Scrotal Abscess. Events since Last Encounter No acute events o/n. Patient denies pain. No f/c/ns. Objective Physical Examination General Exam: Alert, Cooperative, No Acute Distress ABDOMEN EXAM: Soft; No: Tenderness Neuro Exam: Normal Speech Psych Exam: Mental status NL, Mood NL Other physical findings R hemiscrotal wounds clean w/ no active drainage; no erythema; minimal edema; catheter draining clear yellow urine Vital Signs/I&O Vital Signs Date Time Temp Pulse Resp B/P (MAP) Pulse Ox O2 Delivery O2 Flow Rate FiO2 04/06/21 06:00 97.8 60 18 125/68 (87) 97 Room Air I&O- Last 24 Hours up to 6 AM 04/06/21 06:00 Intake Total 3060 ml Output Total 3050 ml Balance 10 ml Laboratory Data Labs 24H Laboratory Tests 2 04/05/21 17:16: Bedside Glucose (Misc Panel) 132H 04/05/21 19:52: Bedside Glucose (Misc Panel) 128H 04/06/21 05:40: Nucleated Red Blood Cells % (auto) 0.0, Anion Gap 7L, Glomerular Filtration Rate > 60.0, Calcium Level 8.8 04/06/21 11:30: Bedside Glucose (Misc Panel) 97 CBC/BMP Laboratory Tests 04/06/21 05:40 FSBS Laboratory Tests Test 04/05/21 17:16 04/05/21 19:52 04/06/21 11:30 Range/Units Bedside Glucose (Misc Panel) 132 128 97 70-105 MG/DL Microbiology Microbiology 04/01/21 Gram Stain - Final, Resulted 04/01/21 Abscess Culture - Final, Resulted 04/01/21 Anaerobic Culture, Resulted Pending Assessment/Plan Date Seen The patient was seen on 04/06/21. Patient Summary This is a 55 y/o M POD5 s/p scrotal I&D and debridement for a scrotal abscess. He is doing well. Cultures are still pending. Plan/VTE VTE Prophylaxis Ordered?: Yes VTE Exclusion Mechanical Proph: N/A:VTE Prophy Ordered Plan - continue broad spectrum abx and adjust based on final cultures - continue daily wet to dry dressing changes - consult to help arrange [facility] to aid in this - start flomax - will d/c Soto tomorrow and do a voiding trial - ambulate DAFNE ABDULLAHI MD Apr 06, 2021 12:32
[2021-04-06 14:00] VITALS: BP 124/66
--- NOTE | 2021-04-06 16:13 | IPNPDOC ---
Date Seen The patient was seen on 04/06/21. Progress Note SUBJECTIVE: No acute events overnight, including none on telemetry. Anaerobic cx still pending. Improved scrotal pain, swelling. OBJECTIVE: PHYSICAL EXAMINATION: VITAL SIGNS: please see below General: NAD, comfortable HEENT: PERRLA, EOMI, sclerae clear Neck: supple, normal ROM, no JVD Respiratory: lungs CTAB, no wheeze, no rales, no crackles CVS: RRR, normal S1, S2, no murmurs Abdo: soft, no masses, no hepatosplenomegaly, BS+, no rebound tenderness : decreased right hemiscrotal swelling , no drainaing, packed wounds. Schwartz catheter in place Extremities: No cyanosis, no edema MSK: no joint deformities, normal ROM Neuro: no focal neuro deficits, moving all 4 extremities, CN2-12 intact. Strength 5/5 in all 4 extremities. No nystagmus. Psych: calm, cooperative, AAO x 3 LABORATORY DATA: Please see below MICROBIOLOGY: R Scrotal abscess aerobic: NG R Scrotal abscess anerobic: pending ASSESSMENT: 55-year-old M with a history of urinary retention type 2 diabetes, hyperlipide barrie, coronary artery disease status post [place] and stenting in 2005, was transferred from [facility] for urologic evaluation of a known scrotal abscess after failed outpatient PO ciprofloxacin, now with drainage from the posterior aspect of the scrotum POD#4 s/p I&D on zosyn. PLAN: Right scrotal abscess -POD 5 I&D, WBC wnl, afebrile, improving swelling -Day 5 Zosyn, awaiting results of anaerobic cx pending -Per urology, c/w abx, daily wet to dry dressing changes, flomax, d/c schwartz cath tomorrow for voiding trial -Urology following DM2 -BS controlled -Holding home metformin -ISS and FSBS AC and HS -hypoglycemic precautions Asymptomatic transient mobitz2 noted on telemetry on 04/02 AM -No other events overnight -f/u EKG showed 1st degree HB -telemetry stable, if no more events in next 24 hours then d/c CAD - s/p [place] in 2005, stent - ASA 81 mg daily PAD s/p fem pop bypass - follows with vascular surgery in [facility] DVT ppx -Heparin Teds DISPOSITION: Urology following daily, f/u voiding trial on 04/07/21. Plan is d/c home with either HH or he had mentioned friend who is nurse doing dressing changes. VS, I&O, 24H, Fishbone Vital Signs/I&O Vital Signs Date Time Temp Pulse Resp B/P (MAP) Pulse Ox O2 Delivery O2 Flow Rate FiO2 04/06/21 14:00 98.4 58 16 124/66 (85) 98 Room Air I&O- Last 24 Hours up to 6 AM 04/06/21 06:00 Intake Total 3060 ml Output Total 3050 ml Balance 10 ml Laboratory Data 24H LABS Laboratory Tests 2 04/05/21 17:16: Bedside Glucose (Misc Panel) 132H 04/05/21 19:52: Bedside Glucose (Misc Panel) 128H 04/06/21 05:40: Nucleated Red Blood Cells % (auto) 0.0, Anion Gap 7L, Glomerular Filtration Rate > 60.0, Calcium Level 8.8 04/06/21 11:30: Bedside Glucose (Misc Panel) 97 CBC/BMP Laboratory Tests 04/06/21 05:40 Microbiology Microbiology 04/01/21 Gram Stain - Final, Resulted 04/01/21 Abscess Culture - Final, Resulted 04/01/21 Anaerobic Culture, Resulted Pending Brenda Reed MD Apr 06, 2021 16:13
[2021-04-06 22:00] VITALS: BP 138/72
[2021-04-07] MEDS: NORCO, ANEXSIA 5/325MG TABLET (HYDROcodone/ACETAMINOPHEN) PO PRN (01:28)
[2021-04-07] MEDS: PIPERACILLIN/TAZOBACTAM SOD 4.5 GM in D5W MINI-BAG PLUS 50 ML IV SCH ×4 (03:50→21:04)
[2021-04-07] MEDS: LR 1,000 ML IV SCH (03:50)
[2021-04-07] MEDS: HEPARIN SOD (PORCINE) 5000UNITS/ML 1ML VIAL/SYRINGE SC SCH ×3 (05:03→21:03)
[2021-04-07 06:00] VITALS: BP 137/59
[2021-04-07 06:03] LABS: HEMATOCRIT 33.3 % (42.0-52.0); HEMOGLOBIN 10.6 g/dl (13.5-17.5); MEAN CORPUSCULAR HEMOGLOBIN 28.3 pg (27.0-33.0); MEAN CORPUSCULAR HGB CONC 31.8 g/dl (32.0-36.5); MEAN CORPUSCULAR VOLUME 88.8 fl (80.0-96.0); PLATELET COUNT, AUTOMATED 276 10^3/uL (150-450); RED BLOOD COUNT 3.75 10^6/uL (4.30-6.10); WHITE BLOOD COUNT 7.3 10^3/uL (4.0-10.0)
[2021-04-07 06:31] LABS: BLOOD UREA NITROGEN 13 MG/DL (7-18); CALCIUM LEVEL 9.5 MG/DL (8.5-10.1); CARBON DIOXIDE LEVEL 26 MEQ/L (21-32); CHLORIDE LEVEL 109 MEQ/L (98-107); GLOMERULAR FILTRATION RATE > 60.0 (>56); GLUCOSE, FASTING 167 MG/DL (70-100); SODIUM LEVEL 139 MEQ/L (136-145)
[2021-04-07] MEDS: TAMSULOSIN 0.4 MG CAP PO SCH (08:25)
[2021-04-07] MEDS: DOCUSATE SODIUM 100MG CAPSULE PO SCH ×2 (08:25→21:00)
[2021-04-07] MEDS: HumaLOG INSULIN (NovoLOG) PER UNIT SC SCH ×4 (08:25→20:45)
--- NOTE | 2021-04-07 09:19 | IPNPDOC ---
Subjective Review oF Systems Chief Complaint The patient is a 56-year-old male admitted with a reason for visit of Scrotal Abscess. Events since Last Encounter No acute events o/n. Patient denies pain. No n/v. Denied difficulty ambulating yesterday. No f/c/ns. Objective Physical Examination General Exam: Alert, Cooperative, No Acute Distress ABDOMEN EXAM: Soft; No: Tenderness Neuro Exam: Normal Speech Psych Exam: Mental status NL, Mood NL Other physical findings catheter draining clear yellow urine; R hemiscrotum w/ minimal edema and no erythema - wounds clean Vital Signs/I&O Vital Signs Date Time Temp Pulse Resp B/P (MAP) Pulse Ox O2 Delivery O2 Flow Rate FiO2 04/07/21 06:00 98.7 67 18 137/59 (85) 98 Room Air I&O- Last 24 Hours up to 6 AM 04/07/21 06:00 Intake Total 2871 ml Output Total 2050 ml Balance 821 ml Laboratory Data Labs 24H Laboratory Tests 2 04/06/21 11:30: Bedside Glucose (Misc Panel) 97 04/06/21 16:21: Bedside Glucose (Misc Panel) 140H 04/06/21 20:22: Bedside Glucose (Misc Panel) 122H 04/07/21 05:33: Nucleated Red Blood Cells % (auto) 0.0 04/07/21 05:34: Anion Gap 4L, Glomerular Filtration Rate > 60.0, Calcium Level 9.5 CBC/BMP Laboratory Tests 04/07/21 05:33 04/07/21 05:34 FSBS Laboratory Tests Test 04/06/21 11:30 04/06/21 16:21 04/06/21 20:22 Range/Units Bedside Glucose (Misc Panel) 97 140 122 70-105 MG/DL Microbiology Microbiology 04/01/21 Gram Stain - Final, Resulted 04/01/21 Abscess Culture - Final, Resulted 04/01/21 Anaerobic Culture, Resulted Pending Assessment/Plan Date Seen The patient was seen on 04/07/21. Patient Summary This is a 55 y/o M POD6 s/p scrotal I&D and debridement for a scrotal abscess. Plan/VTE VTE Prophylaxis Ordered?: Yes VTE Exclusion Mechanical Proph: N/A:VTE Prophy Ordered Plan - d/c Soto and voiding trial - continue flomax - can switch to PO bactrim for 10 days for abx - patient will need HHC to aid in dressing changes - continue daily wet to dry dressing changes - will arrange f/u for the patient to be seen in the urology office in 1 wk DAFNE ABDULLAHI MD Apr 07, 2021 09:19
[2021-04-07 14:00] VITALS: BP 140/62
--- NOTE | 2021-04-07 14:14 | IPNPDOC ---
Date Seen The patient was seen on 04/07/21. Progress Note SUBJECTIVE: Voiding trial today to determine if d/cing with schwartz or not. Swelling further improved over past 24 hours, as well as pain. Anaerobic cx still pending but PO options discussed. Denies chest pain, SOB, fevers, chills. OBJECTIVE: PHYSICAL EXAMINATION: VITAL SIGNS: please see below General: NAD, comfortable HEENT: PERRLA, EOMI, sclerae clear Neck: supple, normal ROM, no JVD Respiratory: lungs CTAB, no wheeze, no rales, no crackles CVS: RRR, normal S1, S2, no murmurs Abdo: soft, no masses, no hepatosplenomegaly, BS+, no rebound tenderness : further decreased right hemiscrotal swelling , no draining, packed wounds. Schwartz catheter in place Extremities: No cyanosis, no edema MSK: no joint deformities, normal ROM Neuro: no focal neuro deficits, moving all 4 extremities, CN2-12 intact. Strength 5/5 in all 4 extremities. No nystagmus. Psych: calm, cooperative, AAO x 3 LABORATORY DATA: Please see below MICROBIOLOGY: R Scrotal abscess aerobic: NG R Scrotal abscess anerobic: pending ASSESSMENT: 55-year-old M with a history of urinary retention type 2 diabetes, hyp erlipidemia, coronary artery disease status post CT and stenting in 2005, was transferred from [facility] for urologic evaluation of a known scrotal abscess after failed outpatient PO ciprofloxacin, now with drainage from the posterior aspect of the scrotum POD#4 s/p I&D on zosyn. PLAN: Right scrotal abscess -POD 6 I&D, WBC wnl, afebrile, further improving swelling -Day 6 Zosyn, awaiting results of anaerobic cx; however, this may still take several days. -D/c schwartz today, do voiding trial. -Per urology, c/w abx, daily wet to dry dressing changes, flomax, zosyn -Likely d/c 04/08/21 with HH for dressing changes along with family friend to help, augmentin x 10 days and f/u with urology in 1 week. -Urology following while inpatient DM2 -BS controlled -Holding home metformin -ISS and FSBS AC and HS -hypoglycemic precautions CAD - s/p CT in 2005, stent - ASA 81 mg daily PAD s/p fem pop bypass - follows with vascular surgery in [facility] DVT ppx -Heparin Teds Resolved: Asymptomatic transient mobitz2 noted on telemetry on 04/02 AM DISPOSITION: Urology following daily, f/u voiding trial on 04/07/21. Plan is d/c home with either HH or he had mentioned friend who is nurse doing dressing changes on 04/08/21 VS, I&O, 24H, Fishbone Vital Signs/I&O Vital Signs Date Time Temp Pulse Resp B/P (MAP) Pulse Ox O2 Delivery O2 Flow Rate FiO2 04/07/21 06:00 98.7 67 18 137/59 (85) 98 Room Air I&O- Last 24 Hours up to 6 AM 04/07/21 06:00 Intake Total 2871 ml Output Total 2050 ml Balance 821 ml Laboratory Data 24H LABS Laboratory Tests 2 04/06/21 16:21: Bedside Glucose (Misc Panel) 140H 04/06/21 20:22: Bedside Glucose (Misc Panel) 122H 04/07/21 05:33: Nucleated Red Blood Cells % (auto) 0.0 04/07/21 05:34: Anion Gap 4L, Glomerular Filtration Rate > 60.0, Calcium Level 9.5 04/07/21 11:30: Bedside Glucose (Misc Panel) 133H CBC/BMP Laboratory Tests 04/07/21 05:33 04/07/21 05:34 Microbiology Microbiology 04/01/21 Gram Stain - Final, Resulted 04/01/21 Abscess Culture - Final, Resulted 04/01/21 Anaerobic Culture, Resulted Pending Brenda Reed MD Apr 07, 2021 14:14
[2021-04-07 22:00] VITALS: BP 138/73
[2021-04-08] MEDS: PIPERACILLIN/TAZOBACTAM SOD 4.5 GM in D5W MINI-BAG PLUS 50 ML IV SCH ×2 (03:27→09:57)
[2021-04-08] MEDS: HEPARIN SOD (PORCINE) 5000UNITS/ML 1ML VIAL/SYRINGE SC SCH (05:43)
[2021-04-08 06:00] VITALS: BP 136/73
[2021-04-08 06:00] LABS: HEMATOCRIT 35.7 % (42.0-52.0); HEMOGLOBIN 11.2 g/dl (13.5-17.5); MEAN CORPUSCULAR HEMOGLOBIN 27.8 pg (27.0-33.0); MEAN CORPUSCULAR HGB CONC 31.4 g/dl (32.0-36.5); MEAN CORPUSCULAR VOLUME 88.6 fl (80.0-96.0); PLATELET COUNT, AUTOMATED 308 10^3/uL (150-450); RED BLOOD COUNT 4.03 10^6/uL (4.30-6.10); WHITE BLOOD COUNT 6.9 10^3/uL (4.0-10.0)
[2021-04-08 06:23] LABS: ALBUMIN 2.4 GM/DL (3.2-5.2); ALT/SGPT 20 U/L (12-78); BILIRUBIN,TOTAL 0.2 MG/DL (0.2-1.0); BLOOD UREA NITROGEN 14 MG/DL (7-18); CALCIUM LEVEL 9.3 MG/DL (8.5-10.1); CARBON DIOXIDE LEVEL 27 MEQ/L (21-32); CHLORIDE LEVEL 109 MEQ/L (98-107); CREATININE FOR GFR 0.94 MG/DL (0.70-1.30); GLOMERULAR FILTRATION RATE > 60.0 (>56); GLUCOSE, FASTING 144 MG/DL (70-100); POTASSIUM SERUM 4.3 MEQ/L (3.5-5.1); SODIUM LEVEL 139 MEQ/L (136-145); TOTAL PROTEIN 7.7 GM/DL (6.4-8.2)
[2021-04-08] MEDS ORDERED: ACET1TAB55 PO (08:04)
[2021-04-08] MEDS ORDERED: HYDR-3715 PO (08:04)
[2021-04-08] MEDS ORDERED: AUGM875T28 PO (08:04)
[2021-04-08] MEDS ORDERED: DOK1CAP7 PO (08:04)
[2021-04-08] MEDS: DOCUSATE SODIUM 100MG CAPSULE PO SCH (09:00)
[2021-04-08] MEDS: TAMSULOSIN 0.4 MG CAP PO SCH (09:56)
[2021-04-08] MEDS: HumaLOG INSULIN (NovoLOG) PER UNIT SC SCH ×2 (10:00→12:00)
--- NOTE | 2021-04-08 16:09 | DS.PDOC ---
Discharge Summary General Date of Admission April 05, 2021 at 09:33 Date of Discharge 04/08/21 Attending Physician: Brenda Reed MD Discharge Summary HISTORY OF PRESENT ILLNESS: 55-year-old male with a history of urinary retention type 2 diabetes, hyperlipidemia, coronary artery disease status post [place] and stenting in 2005, was transferred from [facility] for urologic evaluation of a known scrotal abscess. Patient was seen by Dr. Archibald one week ago, started on cipro floxacin. Pain, swelling and discomfort began worse with draining from the posterior aspect of the scrotum. On arrival to the ER patient was taken to the OR by Dr. Archibald for incision and drainage. Patient denies any chest pain, shortness of breath, palpitations, nausea, vomiting, diarrhea. Postoperatively, patient noticed to have labile blood pressures ordered 1 L bolus by anesthesiology. Patient admitted to hospitalist service for scrotal abscess, cellulitis. HOSPITAL COURSE: patient's right scrotal swelling and cellulitis continued to improve with IV zosyn. Anaerobic cx are still pending, aerobic cx NG thus far. Much improved by POD 7, did well with voiding trial after removal of schwartz catheter on 04/07/21. Other chronic issues remained stable. Per urology d/c 04/08/21 with daily wet to dry dressing changes by HH and friend to help with packing of scrotum, flomax, PO augmentin x10 days, f/u with urology as o/p. No acute complaints at discharge. PAST MEDICAL HISTORY: CAD s/p [place] 2005, stent x 1 DM2 HLD Chronic back pain PAD PAST SURGICAL HISTORY: laminectomy Fem pop bypass 2004 SOCIAL HISTORY: Patient denies smoking Patient denies etoh use Patient denies illicit drug use FAMILY HISTORY: Reviewed with patient, did not contribute pertinent history DISCHARGE MEDS: Please see below PHYSICAL EXAMINATION: VITAL SIGNS: please see below General: NAD, comfortable HEENT: PERRLA, EOMI, sclerae clear Neck: supple, normal ROM, no JVD Respiratory: lungs CTAB, no wheeze, no rales, no crackles CVS: RRR, normal S1, S2, no murmurs Abdo: soft, no masses, no hepatosplenomegaly, BS+, no rebound tenderness : further decreased right hemiscrotal swelling , no draining, packed wounds. Extremities: No cyanosis, no edema MSK: no joint deformities, normal ROM Neuro: no focal neuro deficits, moving all 4 extremities, CN2-12 intact. Strength 5/5 in all 4 extremities. No nystagmus. Psych: calm, cooperative, AAO x 3 LABORATORY DATA: Please see below MICROBIOLOGY: R Scrotal abscess aerobic: NG R Scrotal abscess anerobic: pending ASSESSMENT: 55-year-old M with a history of urinary retention type 2 diabetes, hyperlipidemia, coronary artery disease status post [place] and stenting in 2005, was transferred from [facility] for urologic evaluation of a known scrotal abscess after failed outpatient PO ciprofloxacin, now with drainage from the posterior aspect of the scrotum POD#4 s/p I&D on zosyn. PLAN: Right scrotal abscess, cellulitis -POD 7 I&D, WBC wnl, afebrile, further improving swelling -Day 7 Zosyn, awaiting results of anaerobic cx -D/c schwartz 04/07/21 and did well with voiding trial. -Per urology, d/c today with daily wet to dry dressing changes, flomax, PO augmentin x10 days, f/u with urology as o/p, HH and friend to help with packing of scrotum. DM2 -c/w home meds CAD - s/p [place] in 2005, stent - ASA 81 mg daily PAD s/p fem pop bypass - follows with vascular surgery in [facility] Resolved: Asymptomatic transient mobitz2 noted on telemetry on 04/02 AM DISPOSITION: HH referral, urology follow up after discharge. TIME SPENT ON DISCHARGE: 35 minutes. Vital Signs/I&Os Vital Signs Date Time Temp Pulse Resp B/P (MAP) Pulse Ox O2 Delivery O2 Flow Rate FiO2 04/08/21 06:00 97.3 64 20 136/73 (94) 98 04/07/21 14:00 Room Air I&O- Last 24 Hours up to 6 AM 04/08/21 06:00 Intake Total 2330 ml Output Total 1800 ml Balance 530 ml Laboratory Data Labs 24H Laboratory Tests 2 04/07/21 16:27: Bedside Glucose (Misc Panel) 118H 04/07/21 20:34: Bedside Glucose (Misc Panel) 153H 04/08/21 05:39: Nucleated Red Blood Cells % (auto) 0.0, Anion Gap 3L, Glomerular Filtration Rate > 60.0, Calcium Level 9.3, Total Bilirubin 0.2, Aspartate Amino Transf (AST/SGOT) 23, Alanine Aminotransferase (ALT/SGPT) 20, Alkaline Phosphatase 60, Total Protein 7.7, Albumin 2.4L, Albumin/Globulin Ratio 0.5 CBC/BMP Laboratory Tests 04/08/21 05:39 FSBS Laboratory Tests Test 04/07/21 16:27 04/07/21 20:34 Range/Units Bedside Glucose (Misc Panel) 118 153 70-105 MG/DL Microbiology Microbiology 04/01/21 Gram Stain - Final, Complete 04/01/21 Abscess Culture - Final, Complete 04/01/21 Anaerobic Culture - Final, Complete Bifidobacterium Species Bacteroides Ovatus Discharge Medications Scheduled Amoxicillin/Potassium Clav (Augmentin 875-125 Tablet) 1 Each Tablet, 1 TAB PO BID Aspirin (Aspirin EC) 81 Mg Tablet.dr, 81 MG PO DAILY, (Reported) Cholecalciferol (Vitamin D3) (Vitamin D3) 1,000 Unit Tablet, 1,000 UNITS PO DAILY, (Reported) Clopidogrel Bisulfate (Clopidogrel) 75 Mg Tablet, 75 MG PO DAILY, (Reported) Docusate Sodium (Dok) 100 Mg Capsule, 100 MG PO BID Finasteride (Finasteride) 5 Mg Tablet, 5 MG PO DAILY, (Reported) Gabapentin (Gabapentin) 100 Mg Capsule, 200 MG PO TID, (Reported) Glipizide (Glipizide ER) 5 Mg Tab.er.24, 5 MG PO DAILY, (Reported) Metformin HCl (Metformin HCl) 500 Mg Tablet, 500 MG PO BID, (Reported) Oxybutynin Chloride (Oxybutynin Chloride ER) 5 Mg Tab.er.24, 5 MG PO DAILY, (Reported) Sennosides/Docusate Sodium (Senna Plus Tablet) 1 Each Tablet, 1 TAB PO BID, (Reported) Tamsulosin HCl (Flomax) 0.4 Mg Capsule, 0.4 MG PO QHS, (Reported) Scheduled PRN Acetaminophen (Acetaminophen) 325 Mg Tablet, 650 MG PO Q6HP PRN for PAIN OR FEVER Hydrocodone/Acetaminophen (Hydrocodone-Acetamin 5-325 mg) 1 Each Tablet, 1 TAB PO Q6HP PRN for PAIN Polyethylene Glycol 3350 (Miralax) 17 Gm Powd.pack, 17 GM PO DAILY PRN for CONSTIPATION, (Reported) Allergies Coded Allergies: No Known Allergies (Unverified , 04/01/21) Brenda Reed MD Apr 08, 2021 16:09
== END 2021-04-08 12:29 | disposition home health service (06) | DRG 718 ==
LOC: M ED 20:37 → M SDC 21:38 → M ED INP 04-02 01:17 → M MSPAV 04-02 01:17 → M SDC 04-02 01:17 → M PCU 04-02 02:04 → M MSPAV 04-02 13:15 → OBSVTOIN 04-05 09:33
PROVIDERS: ADMIT Family Medicine; ATTEND Internal Medicine
PROC: 0V950ZZ Drainage of Scrotum, Open Approach (ICD-10-PCS; principal; 2021-04-01 21:20)
DX: N49.2 Inflammatory disorders of scrotum (principal); E11.51 Type 2 diabetes mellitus with diabetic peripheral angiopathy without gangrene; E78.5 Hyperlipidemia, unspecified; I25.10 Atherosclerotic heart disease of native coronary artery without angina pectoris; I25.2 Old myocardial infarction; Z95.2 Presence of prosthetic heart valve; Z79.899 Other long term (current) drug therapy; Z79.82 Long term (current) use of aspirin; I95.81 Postprocedural hypotension; I73.9 Peripheral vascular disease, unspecified; I44.1 Atrioventricular block, second degree

== ENCOUNTER → 2021-10-13 | Outpatient (REF) ==
[~2021-10-13] MED LIST: ACET1TAB55 PO; ASPI-161 PO; AUGM875T28 PO; CLOP75TA2 PO; D31000TA2 PO; DOK1CAP4 PO; FINA5TAB2 PO; FLOM0.4C39 PO; GABA-1171 PO; GLIP5TAB20 PO; HYDR-3715 PO; METF-839 PO; MIRA1POW3 PO; OXYB-54 PO; SENN-53 PO
--- NOTE | 2021-10-14 03:34 | REP ---
INDICATION: PAIN COMPARISON: None. TECHNIQUE: AP, lateral, coned-down views of the lumbar spine. FINDINGS: Frontal view demonstrates very subtle chronic levoconvex scoliosis. Moderate multilevel degenerative changes include endplate sclerosis, facet hypertrophy, and minimal disc space narrowing. Findings are most pronounced at the L5-S1 level and to a somewhat lesser extent L3-4 and L4-5. No acute fracture/compression injury or subluxation. IMPRESSION: 1. Moderate multilevel degenerative changes primarily involving lower lumbar spine. <Electronically signed by Minh Jones > 10/14/21 [id number]
== END ==
LOC: M PLAIMG 13:54
PROVIDERS: ATTEND Internal Medicine
DX: M54.50 Low back pain, unspecified (principal)